=== PATIENT | female | born 1965 | race African-American/Black ===

== ENCOUNTER 2021-06-07 14:52 | Outpatient (CLI) | payer OTHER, SELFPAY ==
--- NOTE | ~2021-06-07 | CT_ITS ---
EXAMINATION: CTA chest PE protocol DATE: 06/07/2021 15:33 INDICATION: Atypical chest pain TECHNIQUE: Computed tomography angiography (CTA) of the chest was performed with 100 mL Omnipaque-350 intravenous contrast timed to evaluate the pulmonary arteries. Coronal maximum intensity projection 3D-reconstructions were created by the technologist. Automated exposure control and iterative reconst ruction technique were employed. Exam dose: 909.42 mGy-cm total exam DLP. COMPARISON: None. FINDINGS: There is diagnostic contrast enhancement of the pulmonary arteries and no evidence of pulmo nary embolism. No thoracic aortic aneurysm or dissection. No hilar or mediastinal mass lesion or lymphadenopathy. Normal heart size. No pericardial or pleural effusion. No pulmonary infiltrate or consolidation or pulmonary mass lesion is detected. Status post cholecystectomy. The adrenal glands appear normal. Postoperative change of the stomach. T here is a small sliding hiatal hernia. Degenerative disc disease of the lower cervical spine. Diffuse idiopathic skeletal hyperostosis of th e thoracic spine. IMPRESSION: No evidence of pulmonary embolism Postoperative change of the stomach Small sliding hiatal hernia Status post cholecystectomy Reviewed, dictated and finalized at [facility]. Reviewed, dictated and finalized at [facility]. [employer]PERATIONS OFFICER
[2021-06-07 15:29] LABS: Estimated Glomerular Filt Rate > 60
== END 2021-06-07 14:53 | disposition home or self-care (01) ==
LOC: ANHIMG 14:59
PROVIDERS: PCP Internal Medicine; Visit Provider Internal Medicine
DX: R07.89 Other chest pain (principal); K44.9 Diaphragmatic hernia without obstruction or gangrene; Z90.49 Acquired absence of other specified parts of digestive tract
CPT/HCPCS: 71275; Q9967

== ENCOUNTER 2023-02-27 14:47 | Emergency (ER) | payer OTHER, SELFPAY ==
[2023-02-27 14:56] VITALS: BP 151/83; PULSE 85; RESP 18; TEMP 36.9; O2SAT 98
--- NOTE | 2023-02-27 17:47 | ED.EYEPROB ---
HPI - Eye Problem General Chief complaint: Eye Problems Stated complaint: glue in right eye Time Seen by Provider: 02/27/23 16:56 Source: patient Mode of arrival: ambulatory Limitations: no limitations History of Present Illness HPI Narrative: Patient is a 57-year-old female who presents to the ED with report of right eye discomfort. Patient reports she accidentally put nail glue into her right eye instead of her normal eyedrops. This occurred around 2 PM today. She believes she put around 3 drops into the eye. She noticed pain and burning immediately afterwards. She reports difficulty keeping her eye open, blurry vision from the right eye, watery discharge. She denies vision loss. She typically wears eyeglasses. Review of Systems Review of Systems: CONSTITUTIONAL: Denies fever, chills, or sweats. EYES: See HPI. NEUROLOGIC: Denies headache, numbness, or weakness. All systems reviewed & are unremarkable except as noted in HPI and below Exam Narrative: GENERAL: Well appearing, well-nourished, non-toxic, in no acute distress. HEAD: Normocephalic, atraumatic. EYES: PERRLA/EOMI, discomfort in right eye with eye movement. Diffuse conjunctival injection in right eye with serous drainage. No significant chemosis. Patient having difficulty keeping right eyelid open. Left eye normal. No periorbital swelling or erythema. No obvious glue residue. NECK: Supple. No adenopathy, no masses. RESPIRATORY: Airway patent, respirations nonlabored. CARDIOVASCULAR: Regular rate and rhythm without murmurs, rubs, or gallops. Radial pulses 2+ and equal bilaterally. MUSCULOSKELETAL: Moves all extremities. Strength/ROM intact without gross deformities. SKIN: Warm, dry, normal color. No rashes. NEURO: A&O X3. Speech clear. Cranial nerves II-XII grossly intact. Steady gait. No ataxic movements. PSYCHIATRIC: Appropriate mood and affect. Normal interaction. Course Vital Signs Vital signs: Vital Signs Temperature 98.4 F 02/27/23 14:56 Pulse Rate 85 02/27/23 14:56 Respiratory Rate 18 02/27/23 14:56 Blood Pressure 151/83 H 02/27/23 14:56 Pulse Oximetry 98 02/27/23 14:56 Oxygen Delivery Room Air 02/27/23 14:56 Temperature 98.4 F 02/27/23 14:56 Pulse Rate 85 02/27/23 14:56 Respiratory Rate 18 02/27/23 14:56 Blood Pressure 151/83 H 02/27/23 14:56 Pulse Oximetry 98 02/27/23 14:56 Oxygen Delivery Room Air 02/27/23 14:56 MDM - Eye Problem MDM Narrative Medical decision making narrative: Nail glue into right eye. Pain, burning, blurry vision, watery drainage. Visual acuity decreased in right eye. When asking patient to tell me how many fingers I am holding up, patient unable to determine at approximately 5 feet. She is able to see this more accurately immediately in front of her face. Fluorescein staining with Tai lamp examination did reveal a few focal areas of uptake along the lower eye. Unable to actually view any physical glue. Discussed case with [facility] ophthalmology, Dr. Aguayo, recommended frequent artificial tears to eye. Advised symptoms unlikely to change overnight. Advised patient can be transferred now or be seen in the [facility] optho clinic tomorrow morning. I discussed this with patient. She feels comfortable waiting for evaluation until tomorrow. She does not want to be transferred at this time. She will find a ride to the [facility] ophthalmology clinic tomorrow morning. Patient will be seeing Dr. Cachorro Kirkpatrick at 10:30 AM. She was given instructions for this. Given strict return precautions. Patient agrees with plan and feels comfortable with discharge home. Medical Records Attestation: I reviewed the patient's medical records. Discharge Plan Discharge Clinical Impression: Chemical conjunctivitis of right eye, Blurry vision, right eye Patient Disposition: Home, Self-Care Condition: Stable Instructions: Antibiotic Form, Eye Pain (ED), Conjunctivitis (ED) Additional Instructions: Y
== END 2023-02-27 18:48 | disposition home or self-care (01) ==
PROVIDERS: Emergency Provider Physician Assistant; PCP Internal Medicine
DX: T52.8X1A Toxic effect of other organic solvents, accidental (unintentional), initial encounter (principal); H10.211 Acute toxic conjunctivitis, right eye
CPT/HCPCS: 99282